=== PATIENT | male | born 1960 | race Caucasian/White ===

== ENCOUNTER 2021-10-15 19:36 | Emergency (ER) | payer SELFPAY ==
[2021-10-15 20:31] LABS: HEMOGLOBIN 13.3 gm/dl (14.0-17.5); RED BLOOD COUNT 4.18 M/UL (4.20-5.50); WHITE BLOOD COUNT 8.6 K/UL (4.5-11.0)
[2021-10-15 20:44] LABS: BUN/CREATININE RATIO 17 (0-10)
[2021-10-15] MEDS ORDERED: KEPPRA500 MG PO (21:20)
[2021-10-15] MEDS ORDERED: FIORINAL CAPSULE1 EA PO (21:20)
== END 2021-10-15 21:50 | disposition home or self-care (01) ==
LOC: ER1 19:36
PROVIDERS: Emergency Medicine
DX: R56.9 Unspecified convulsions (principal); R51.9 Headache, unspecified; F17.200 Nicotine dependence, unspecified, uncomplicated
CPT/HCPCS: 70450; 71045; 80048; 84484; 85025; 93005; 99285; G0480

== ENCOUNTER 2021-12-06 20:34 | Emergency (ER) | payer SELFPAY ==
[~2021-12-06 20:34] MED LIST: FIORINAL CAPSULE1 EA PO; KEPPRA500 MG PO
[2021-12-06 21:00] LABS: HEMOGLOBIN 13.4 gm/dl (14.0-17.5); RED BLOOD COUNT 4.16 M/UL (4.20-5.50); WHITE BLOOD COUNT 10.3 K/UL (4.5-11.0)
[2021-12-06 21:43] LABS: BUN/CREATININE RATIO 12 (0-10)
[2021-12-07] MEDS ORDERED: KEPPRA 500 MG500 MG PO (10:54)
== END 2021-12-07 11:33 | disposition home or self-care (01) ==
LOC: ER1 20:34
PROVIDERS: Physician Assistant
DX: G40.909 Epilepsy, unspecified, not intractable, without status epilepticus (principal); F12.129 Cannabis abuse with intoxication, unspecified; R00.0 Tachycardia, unspecified; F17.210 Nicotine dependence, cigarettes, uncomplicated; Z91.19 Patient's noncompliance with other medical treatment and regimen; Z88.0 Allergy status to penicillin; Z20.822 Contact with and (suspected) exposure to COVID-19
CPT/HCPCS: 0240U; 70450; 71045; 80053; 80307; 81001; 82550; 82553; 83605; 83690; 83735; 84484; 85025; 87086; 93005; 96361; 96374; 96375; 99284; G0480; J1953; J3360